=== PATIENT | male | born 1975 | race Two or more races ===

== ENCOUNTER 2022-03-23 11:06 | Outpatient (REF) | payer OTHER, SELFPAY ==
[2022-03-23 11:36] LABS: COVID-19 Test Positive (Negative); IDNOW Serial# 16C4AD1C
== END 2022-03-23 11:07 | disposition home or self-care (01) ==
LOC: HO.LAB 11:06
PROVIDERS: Visit Provider Internal Medicine
DX: Z20.822 Contact with and (suspected) exposure to COVID-19 (principal)
CPT/HCPCS: 87635; C9803

== ENCOUNTER 2022-03-31 15:17 | Outpatient (REF) | payer OTHER, SELFPAY ==
[2022-03-31 16:05] LABS: COVID-19 Test Negative (Negative)
== END 2022-03-31 15:18 | disposition home or self-care (01) ==
LOC: HO.LAB 15:17
PROVIDERS: Visit Provider Internal Medicine
DX: Z20.822 Contact with and (suspected) exposure to COVID-19 (principal)
CPT/HCPCS: 87635; C9803

== ENCOUNTER 2023-06-08 08:19 | Emergency (ER) | payer OTHER, SELFPAY ==
--- NOTE | ~2023-06-08 | XR_ITS ---
EXAMINATION: XR SHOULDER, RIGHT CLINICAL INFORMATION: Right shoulder pain status post trauma. COMPARISON: None available. TECHNIQUE: AP external rotation, Grashey, scapular Y, and axillary views of the right shoulder. FINDINGS: Mild right acromioclavicular degenerative joint changes are seen. The right glenohumeral joint is unremarkable. There is no acute fracture or dislocation. The soft tissues are unremarkable. XR/XR shoulder RT min 2V IMPRESSION: Mild right acromioclavicular degenerative joint changes. No acute fracture.
--- NOTE | ~2023-06-08 | CT_ITS ---
EXAMINATION: CT CERVICAL SPINE WITHOUT CONTRAST CLINICAL INFORMATION: Neck pain status post fall. COMPARISON: None available. TECHNIQUE: Multiple axial images of the cervical spine were obtained without the administration of intravenous contrast. Coronal and sagittal reformatted images were obtained. This CT examination was performed using dose optimization techniques as appropriate, variously including the following: *Automated exposure control *Adjustment of mA and/or kV according to patient size (this includes techniques or standardized protocols for targeted exams where dose is matched to indication/reason for exam; i.e. extremities or head) *Use of iterative reconstruction technique DLP: 546.48 mGy-cm FINDINGS: There is normal cervical lordosis and spinal alignment. The vertebral bodies and intervertebral disc spaces are unremarkable. Mild to moderate anterior osteophyte formation is seen at C4-C5 and C5-C6, more pronounced at C5-C6. The odontoid process is intact with mild articulating degenerative changes. The neural foramina are patent. The facet joints are unremarkable. The spinous and transverse processes are intact. The cervical soft tissues are unremarkable. There is no lymphadenopathy. The thyroid gland is unremarkable. No significant biapical abnormality. CT/CT cervical spine wo IV con IMPRESSION: Mild to moderate multilevel degenerative changes without acute abnormality.
--- NOTE | ~2023-06-08 | CT_ITS ---
EXAMINATION: CT HEAD WITHOUT CONTRAST CLINICAL INFORMATION: Head injury status post fall, rule out intracranial abnormality. COMPARISON: None available. TECHNIQUE: Contiguous axial imaging was performed from the skull base to vertex without intravenous administration of contrast. Coronal and sagittal reformatted images were obtained. This CT examination was performed using dose optimization techniques as appropriate, variously including the following: *Automated exposure control *Adjustment of mA and/or kV according to patient size (this includes techniques or standardized protocols for targeted exams where dose is matched to indication/reason for exam; i.e. extremities or head) *Use of iterative reconstruction technique DLP: 722.3 mGy-cm FINDINGS: The cortical sulci are normal. The lateral ventricles are symmetrical. The third and fourth ventricles are in their normal midline position. The basilar and prepontine cisterns are unremarkable. There is no acute intra or extracerebral abnormality. There is no mass effect or midline shift. Sections through the bony calvarium are unremarkable. The paranasal sinuses are clear. The bony orbits and orbital contents are unremarkable. CT/CT head/brain wo IV con IMPRESSION: No acute intracranial pathology.
[2023-06-08 08:27] VITALS: BP 171/103; PULSE 73; RESP 18; TEMP 36.8; O2SAT 97; BMI 34.0
--- NOTE | 2023-06-08 08:37 | PC.NURSE ---
Pt. moved to ED bed 22H. ANDI Boothe notified of pt. being moved to her section.
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
== END 2023-06-08 10:18 | disposition home or self-care (01) ==
PROVIDERS: Emergency Provider Emergency Medicine
DX: S09.90XA Unspecified injury of head, initial encounter (principal); S40.011A Contusion of right shoulder, initial encounter; R51.9 Headache, unspecified; M54.2 Cervicalgia; V19.40XA Pedal cycle driver injured in collision with unspecified motor vehicles in traffic accident, initial encounter; Y93.9 Activity, unspecified; Y92.410 Unspecified street and highway as the place of occurrence of the external cause; Y99.9 Unspecified external cause status; Z79.899 Other long term (current) drug therapy
CPT/HCPCS: 70450; 72125; 73030; 99282; 99284

== ENCOUNTER 2023-08-03 09:43 | Emergency (ER) | payer OTHER, SELFPAY ==
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
--- NOTE | ~2023-08-03 | CT_ITS ---
EXAMINATION: CT HEAD WITHOUT CONTRAST CT FACE WITHOUT CONTRAST CT CERVICAL SPINE WITHOUT CONTRAST CLINICAL INFORMATION: Fall. Head strike. COMPARISON: CT head and cervical spine 06/08/2023. TECHNIQUE: Fishing Floats Assembler images were obtained. CT imaging of the head, face, and cervical spine was performed without contrast. Data was reformatted into multiplanar images at the acquisition workstation. This CT examination was performed using dose optimization techniques as appropriate, including one or more of the following: Automated exposure control, iterative reconstruction, and adjustment of technique factors (mA and/or kVp) according to patient size (this includes techniques or standardized protocols for targeted exams where dose is matched to indication/reason for exam). Fleischner Society criteria for the followup of incidental pulmonary nodules was implemented if appropriate. DLP: 1771 mGy-cm. FINDINGS: There is no acute intracranial hemorrhage or abnormal extra-axial collection. No intracranial mass effect or midline shift. Lateral and third ventricles are normal. No hydrocephalus. Adan-white matter differentiation is preserved and there is no evidence of acute territorial infarct. The calvarium and skull base are intact. Mastoid air cells and middle ear cavities are well aerated. Nasal bones, zygomatic arches, and pterygoid processes are intact. There is no acute mandibular fracture. Paranasal sinuses are well aerated and the major paranasal sinus drainage pathways are patent. Globes and extraocular muscles are symmetric. No abnormal retrobulbar hematoma or inflammation. Lamina papyracea and orbital floors are intact. Orbital apices are intact.. There is a periapical lucencies surrounding the left maxillary incisors possibly representing an abscess or granuloma. Cervical spinal alignment is normal in the sagittal dimension. Vertebral heights are preserved. No acute cervical spine fracture. No abnormal prevertebral soft tissue swelling. Grossly no evidence of spinal canal compromise. Soft tissues of the neck including the thyroid gland are normal. CT/CT head/brain wo IV con IMPRESSION: No acute intracranial hemorrhage. No acute facial fracture. No acute cervical spine fracture.
[2023-08-03 09:51] VITALS: BP 155/97; PULSE 72; RESP 18; TEMP 36.8; O2SAT 98; BMI 34.1
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
[2023-08-03] MEDS: Ketorolac Tromethamine 30 MG/ML VIAL IM (10:25)
[2023-08-03 13:07] VITALS: BP 144/81; PULSE 60; RESP 20; TEMP 36.7; O2SAT 97
== END 2023-08-03 13:15 | disposition home or self-care (01) ==
PROVIDERS: Emergency Provider Emergency Medicine; PCP Family Medicine
DX: S00.83XA Contusion of other part of head, initial encounter (principal); W17.89XA Other fall from one level to another, initial encounter; E11.9 Type 2 diabetes mellitus without complications; Z79.84 Long term (current) use of oral hypoglycemic drugs; Y93.89 Activity, other specified; Y92.9 Unspecified place or not applicable; Y99.9 Unspecified external cause status
CPT/HCPCS: 70450; 70486; 72125; 96372; 99283; 99284; J1885